=== PATIENT | female | born 1980 | race Caucasian/White ===

== ENCOUNTER 2018-05-20 02:48 | Outpatient (CLI) | payer OTHER, SELFPAY ==
[2018-05-20 11:27] LABS: ALT 25 U/L (12-78); AST 18 U/L (15-37); Albumin 3.6 g/dL (3.4-5.0); Alkaline Phosphatase 40 U/L (46-116); Anion Gap 7.8 mmol/L (3-11); BUN 13 mg/dL (7-18); Bilirubin, Total 0.8 mg/dL (0.2-1.0); CO2 28.2 mmol/L (21.0-32.0); CREATININE 0.63 mg/dL (0.55-1.02); Chloride 104 mmol/L (98-107); Glucose 85 mg/dL (70-100); Potassium 4.5 mmol/L (3.5-5.1); Sodium 140 mmol/L (136-145); Total Protein 6.7 g/dL (6.4-8.2)
== END 2018-05-20 03:08 ==
DX: Z00.00 Encounter for general adult medical examination without abnormal findings (principal); J45.990 Exercise induced bronchospasm; M65.9 Synovitis and tenosynovitis, unspecified; R17 Unspecified jaundice
CPT/HCPCS: 36415; 80053

== ENCOUNTER 2018-06-03 01:34 | Outpatient (CLI) | payer OTHER, SELFPAY ==
--- NOTE | 2018-06-03 13:28 | DI.COMBO_ITS ---
SYMPTOMS/DIAGNOSIS: LEFT BREAST MASS, N63.20 MAMMOGRAM AND LEFT BREAST ULTRASOUND: Mammogram and left breast ultrasound are interpreted in conjunction. The patient reportedly has a question of a palpable abnormality in the upper outer quadrant of the left breast. The breasts are heterogeneously dense. No dominant mass or clumped microcalcification identified in either breast. Today' s examination is a baseline examination. Left breast ultrasound was performed to evaluate the questionable area of abnormality and there is no specific abnormality identified in this area. No mass or cyst seen in this area. There is an incidental 4 mm in diameter simple cyst of the upper inner quadrant of the left breast. CONCLUSION: No specific evidence of malignancy at this time. I would suggest that routine screening examinations begin at age 40 unless there is breast symptomatology in the intervening period. Category 1, breast density category C. MQSA ASSESSMENT OF FINDINGS: Negative. Category 1. Patient will receive a letter notifying them of these results. Bi-RADS category C. The breasts are heterogeneously dense, which may obscure small masses.
== END 2018-06-03 01:54 ==
DX: N63.21 Unspecified lump in the left breast, upper outer quadrant (principal); N60.02 Solitary cyst of left breast
CPT/HCPCS: 76642; 77062; 77066; G0279

== ENCOUNTER 2020-08-05 19:14 | Outpatient (REF) | payer SELFPAY ==
[2020-08-07 15:52] LABS: COVID-19 RT-PCR UVMMC Result Negative (Negative)
== END 2020-08-05 19:34 ==
LOC: NCHCN 19:14
PROVIDERS: PCP Nurse Practitioner; Visit Provider Nurse Practitioner Family
DX: Z11.59 Encounter for screening for other viral diseases (principal)
CPT/HCPCS: U0003

== ENCOUNTER 2020-10-10 22:26 | Outpatient (REF) | payer OTHER, SELFPAY ==
[2020-10-10 15:54] LABS: HCT 39.6 % (36.0-46.0); HGB 13.2 g/dL (11.2-15.7); MCH 32.5 pg (27.0-33.0); MCHC 33.3 % (32.0-36.0); MCV 97.5 fL (80-95); MPV 9.8 fL (8.0-11.0); Platelet Count 305 10^3/uL (130-400); RBC 4.06 10^6/uL (3.93-5.22); RDW 12.9 % (11.7-14.6); RDW-SD 46.5 fL; WBC 4.86 10^3/uL (4.4-10.8)
[2020-10-10 16:21] LABS: Hemoglobin A1C 5.1 % (<5.7)
[2020-10-10 16:25] LABS: Calculated LDL 50 mg/dL (<100); Cholesterol 145 mg/dL (<200); HDL Cholesterol 84 mg/dL (40-60); Triglyceride 58 mg/dL (<150)
== END 2020-10-10 22:27 | disposition home or self-care (01) ==
LOC: LBN 22:26
PROVIDERS: PCP Nurse Practitioner; Visit Provider Nurse Practitioner
DX: N92.0 Excessive and frequent menstruation with regular cycle (principal); Z13.6 Encounter for screening for cardiovascular disorders; Z13.1 Encounter for screening for diabetes mellitus
CPT/HCPCS: 80061; 85027; 83036

== ENCOUNTER 2020-10-25 03:55 | Outpatient (CLI) | payer OTHER, SELFPAY ==
--- NOTE | 2020-10-25 06:45 | DI.US_ITS ---
EXAM: US PELVIS TRANSVAGINAL CLINICAL HISTORY: heavy menses,N92.0 TECHNIQUE: Transabdominal and transvaginal imaging was performed using standard protocol. COMPARISON: US none FINDINGS: KIDNEYS: Kidneys are symmetric in size. A few small echogenic foci are seen in the left kidney. Ther e is prominence of the left renal pelvis and dilatation of the calices. No renal mass or cyst identi fied. UTERUS: Anteverted. 8.8 x 4.4 x 5.2 cm. Endometrium: 15 millimeters, mildly heterogeneous. Myometrium: Unremarkable. Cervix: Unremarkable. OVARIES: Right: Cyst or mass: None. Left: Cyst or mass: 2.0 x 1.8 x 1.9 centimeter heterogeneous lesion which could represent a hemorrhag ic cyst. DOPPLER: Color: Symmetric and uniform flow to both ovaries. No hyperemia. Duplex: Normal ovarian arterial waveforms visualized. CUL-DE-SAC: Free fluid: None. IMPRESSION: 1. Thickened, mildly heterogeneous endometrium. 2. 2 centimeter complex lesion of the left ovary could represent a hemorrhagic cyst. Follow-up exam could be considered. 3. Left nephrolithiasis and mild to moderate left hydronephrosis. CT could be considered for further evaluation. DATA REPOSITORY:
== END 2020-10-25 04:15 ==
PROVIDERS: PCP Nurse Practitioner; Visit Provider Nurse Practitioner
DX: R93.89 Abnormal findings on diagnostic imaging of other specified body structures (principal); N92.0 Excessive and frequent menstruation with regular cycle; N83.8 Other noninflammatory disorders of ovary, fallopian tube and broad ligament; N13.2 Hydronephrosis with renal and ureteral calculous obstruction
CPT/HCPCS: 76830; 76856

== ENCOUNTER 2021-02-15 11:34 | Outpatient (REF) | payer OTHER, SELFPAY ==
[2021-02-20 15:02] LABS: Helicobacter pylori Ag, Feces Negative (Negative)
== END 2021-02-15 11:35 | disposition home or self-care (01) ==
LOC: LBN 11:34
PROVIDERS: PCP Nurse Practitioner; Visit Provider Nurse Practitioner
DX: K21.9 Gastro-esophageal reflux disease without esophagitis (principal)
CPT/HCPCS: 87338

== ENCOUNTER 2021-05-09 20:52 | Outpatient (REF) | payer OTHER, SELFPAY | END 2021-05-09 20:53 | disposition home or self-care (01) | LOC: LBN 20:52 | PROVIDERS: PCP Nurse Practitioner; Visit Provider Physician Assistant | DX: J02.9 Acute pharyngitis, unspecified (principal) | CPT/HCPCS: 87070 ==

== ENCOUNTER 2021-10-17 10:04 | Outpatient (REF) | payer OTHER, SELFPAY ==
--- NOTE | 2021-10-17 09:40 | PAPFT_PTH ---
PATIENT: Pauline Fernandez LOC: [facility] U#:[id number] AGE/SX: 41/F ROOM: RE10/17/[address]: Avani Serrato, PhD SKI INSTRUCTOR : 1980 BED: DIS: 10/17/2021 SPEC #: [id number] RECD: 10/17/21 12:48 STATUS: VENKATESH REJuan Luis #: [id number] TRENT: 10/17/21 09:[address]: Avani Serrato DEPT: [facility] Cytology RECD BY: Radha Huertas Tissues: 1 - CX/ENDOCX FOR PAP SMEARS Procedures: PAP THIN PREP/UVM Screening HPV DNA PROBE Comments: [id number]
== END 2021-10-17 10:05 | disposition home or self-care (01) ==
LOC: LBN 10:04
PROVIDERS: PCP Nurse Practitioner; Visit Provider Nurse Practitioner
DX: Z12.4 Encounter for screening for malignant neoplasm of cervix (principal); Z11.51 Encounter for screening for human papillomavirus (HPV)
CPT/HCPCS: 88142; 87624

== ENCOUNTER 2022-10-27 02:27 | Outpatient (CLI) | payer BC, SELFPAY ==
[2022-10-27 12:34] LABS: HCT 40.9 % (36.0-46.0); HGB 13.4 g/dL (11.2-15.7); MCH 32.4 pg (27.0-33.0); MCHC 32.8 % (32.0-36.0); MCV 99 fL (80-95); MPV 9.9 fL (8.0-11.0); Platelet Count 246 10^3/uL (130-400); RBC 4.13 10^6/uL (3.93-5.22); RDW 13.2 % (11.7-14.6); RDW-SD 48.6 fL; WBC 4.44 10^3/uL (4.4-10.8)
[2022-10-27 12:58] LABS: ALT 21 U/L (14-59); AST 24 U/L (15-37); Albumin 3.8 g/dL (3.4-5.0); Alkaline Phosphatase 37 U/L (46-116); Anion Gap 6.3 mmol/L (3-11); BUN 11 mg/dL (7-18); Bilirubin, Total 1.2 mg/dL (0.2-1.0); CO2 27.7 mmol/L (21.0-32.0); CREATININE 0.7 mg/dL (0.55-1.02); Calcium 8.4 mg/dL (8.5-10.1); Chloride 104 mmol/L (98-107); Estimated GFR 112.05 (mL/min/1.73m2); Glucose 86 mg/dL (74-106); Potassium 4.5 mmol/L (3.5-5.1); Sodium 138 mmol/L (136-145); Total Protein 7.1 g/dL (6.4-8.2); Uric Acid 4.2 mg/dL (2.6-6.0)
[2022-10-27 13:18] LABS: Calculated LDL 79 mg/dL (<100); Cholesterol 174 mg/dL (<200); HDL Cholesterol 86 mg/dL (40-60); Triglyceride 46 mg/dL (<150)
== END 2022-10-27 02:28 | disposition home or self-care (01) ==
LOC: LOS 02:27
PROVIDERS: PCP Nurse Practitioner Family; Visit Provider Nurse Practitioner Family
DX: Z00.00 Encounter for general adult medical examination without abnormal findings (principal); F32.89 Other specified depressive episodes; F41.8 Other specified anxiety disorders; M79.675 Pain in left toe(s); Z13.220 Encounter for screening for lipoid disorders
CPT/HCPCS: 36415; 80053; 80061; 85027; 84550

== ENCOUNTER 2022-11-24 01:16 | Outpatient (CLI) | payer BC, SELFPAY ==
--- NOTE | 2022-11-24 07:00 | DI.MAMMO_ITS ---
Exam(s) MAMMO SCREENING EXAM: MAMMO SCREENING CLINICAL HISTORY: screening,z12.39. TECHNIQUE: Bilateral full field digital CC and MLO mammographic images were obtained with 3D tomosyn thesis and utilizing computer aided detection (CAD). COMPARISON: Prior baseline mammogram 2018. Breast ultrasound at that time also reviewed. FINDINGS: No new significant right breast findings. Posteromedially in the left breast there is an asymmetric density again noted which has slightly incr eased in size and there is also a 2nd smaller density at this level, both evident on the CC view and located posteromedially, approximately 10-11 cm in from the nipple. There are no malignant-appearing microcalcification groups in this region or elsewhere in either fay st. There is no significant architectural distortion nor skin thickening-retraction. IMPRESSION: No radiographic evidence of malignancy in the right breast. Asymmetric density possible nodules posteromedially in the left breast. Spot compression view and ul trasound recommended. BI-RADS Category 0 - Assessment Incomplete: Need additional imaging evaluation Breast Density - Category B - Scattered areas of fibroglandular density Breast density Category C or D implies that the patient has dense breast tissue. Dense breast tissue can make it harder to find cancer on a mammogram. Dense breast tissue is also associated with an incr eased risk of breast cancer. This information about the result of the mammogram report was provided to the patient to raise their awareness. Use this report when you speak with the patient about their risks for breast cancer, which includes their family history. At that time, you may recommend additional screening tests (Ultrasoun d or MRI) as these tests may add significant information. A negative radiographic report should not delay biopsy if a dominant or clinically suspicious mass is present. Up to ten percent of cancers are not identified on mammography. A negative report may reinforce clinical impression. Adenosis and dense breasts may obscure an underlying neoplasm. False positive reports average 6 to 10%. Patient will receive a letter notifying them of these results.
== END 2022-11-24 01:36 ==
LOC: DI 01:17
PROVIDERS: PCP Nurse Practitioner Family; Visit Provider Nurse Practitioner Family
DX: Z12.31 Encounter for screening mammogram for malignant neoplasm of breast (principal); R92.8 Other abnormal and inconclusive findings on diagnostic imaging of breast
CPT/HCPCS: 77063; 77067

== ENCOUNTER 2022-12-08 01:05 | Outpatient (CLI) | payer BC, SELFPAY ==
--- NOTE | 2022-12-08 | DI.US_ITS ---
Exam(s) MG MAMMO SCREEN CALL BACK UNI US BREAST LT LIMITED EXAM: MG MAMMO SCREEN CALL BACK UNI and U/S breast LT limited CLINICAL HISTORY: F/U ABNL MAMMO, ASYMMETRIC DENSITY POSSIBLE NODULE LT BREAST. TECHNIQUE: Craniocaudal and mediolateral oblique Full Field Digital Mammography views of the left br east with Computer Aided Diagnosis followed by Tomosynthesis and left breast ultrasound. COMPARISON: Comparison is made with prior examinations. FINDINGS: Mammography/Tomosynthesis: Masses/Architectural Distortion: The area of concern persist in the medial left breast. No sap bpc architect ural distortion or so seated calcifications are seen. No definite discrete mass. This may represent normal fibroglandular tissue. Microcalcifictions: No suspicious pleomorphic-type are seen. Skin Thickening/Nipple Retraction: None. Limited left breast US: Echotexture: Normal appearance of the glandular tissue. Shadowing: No suspicious foci. Cyst: None. Solid lesions: None seen. Ductal dilation: None. IMPRESSION: 1. No definite evidence of malignancy is noted. 2. A six-month follow-up left mammogram is requested for re-evaluation. 3. The findings were discussed with the patient on the date of the examination. BI-RADS Category 3 - 6 month - Probably Benign Finding: Recommend follow-up imaging in 6 months Breast Density - Category B - Scattered areas of fibroglandular density Breast density Category C or D implies that the patient has dense breast tissue. Dense breast tissue can make it harder to find cancer on a mammogram. Dense breast tissue is also associated with an incr eased risk of breast cancer. This information about the result of the mammogram report was provided to the patient to raise their awareness. Use this report when you speak with the patient about their risks for breast cancer, which includes their family history. At that time, you may recommend additional screening tests (Ultrasoun d or MRI) as these tests may add significant information. A negative radiographic report should not delay biopsy if a dominant or clinically suspicious mass is present. Up to ten percent of cancers are not identified on mammography. A negative report may reinforce clinical impression. Adenosis and dense breasts may obscure an underlying neoplasm. False positive reports average 6 to 10%. Patient will receive a letter notifying them of these results.
== END 2022-12-08 01:25 ==
LOC: DI 01:08
PROVIDERS: PCP Nurse Practitioner Family; Visit Provider Nurse Practitioner Family
DX: R92.8 Other abnormal and inconclusive findings on diagnostic imaging of breast (principal)
CPT/HCPCS: 76642; 77063; 77067

== ENCOUNTER → 2023-06-15 01:14 | Outpatient (CLI) | payer BC, SELFPAY ==
--- NOTE | 2023-06-15 08:30 | DI.MAMMO_ITS ---
Exam(s) MAMMO DIAGNOSTIC UNI EXAM: MAMMO DIAGNOSTIC UNI CLINICAL HISTORY: 6 month follow up, R92.8, ABNL LT BREAST. TECHNIQUE: Craniocaudal and mediolateral oblique Full Field Digital Mammography views of the left br east with Computer Aided Diagnosis followed by Tomosynthesis. COMPARISON: Comparison is made with prior examinations. FINDINGS: Mammography/Tomosynthesis: Masses/Architectural Distortion: The asymmetric breast tissue in the medial left breast is unchanged. No suspicious masses or areas of architectural distortion are seen. Microcalcifictions: No suspicious pleomorphic-type are seen. Skin Thickening/Nipple Retraction: None. IMPRESSION: 1. No evidence of malignancy is noted. 2. A six-month follow-up left mammogram is requested for re-evaluation. 3. The findings were discussed with the patient on the date of the examination. BI-RADS Category 3 - 6 month - Probably Benign Finding: Recommend follow-up imaging in 6 months Breast Density - Category B - Scattered areas of fibroglandular density Breast density Category C or D implies that the patient has dense breast tissue. Dense breast tissue can make it harder to find cancer on a mammogram. Dense breast tissue is also associated with an incr eased risk of breast cancer. This information about the result of the mammogram report was provided to the patient to raise their awareness. Use this report when you speak with the patient about their risks for breast cancer, which includes their family history. At that time, you may recommend additional screening tests (Ultrasoun d or MRI) as these tests may add significant information. A negative radiographic report should not delay biopsy if a dominant or clinically suspicious mass is present. Up to ten percent of cancers are not identified on mammography. A negative report may reinforce clinical impression. Adenosis and dense breasts may obscure an underlying neoplasm. False positive reports average 6 to 10%. Patient will receive a letter notifying them of these results.
== END ==
PROVIDERS: PCP Nurse Practitioner Family; Visit Provider Nurse Practitioner Family
DX: R92.8 Other abnormal and inconclusive findings on diagnostic imaging of breast (principal); Z09 Encounter for follow-up examination after completed treatment for conditions other than malignant neoplasm
CPT/HCPCS: 77061; 77065; G0279

== ENCOUNTER → 2024-02-10 | Outpatient (CLI) | payer BC, SELFPAY ==
--- NOTE | 2024-02-10 07:30 | DI.MAMMO_ITS ---
Exam(s) MAMMO DIAGNOSTIC BI EXAM: MAMMO DIAGNOSTIC BI CLINICAL HISTORY: 6 month follow up,R92.8,Z09, LT ASYMMETRIC BREAST TISSUE. TECHNIQUE: Craniocaudal and mediolateral oblique Full Field Digital Mammography views of the bilater al breast with Computer Aided Diagnosis followed by Tomosynthesis. COMPARISON: Comparison is made with prior examinations. FINDINGS: Mammography/Tomosynthesis: Masses/Architectural Distortion: None seen. Microcalcifictions: No suspicious pleomorphic-type are seen. Skin Thickening/Nipple Retraction: None. IMPRESSION: 1. No evidence of malignancy is noted. 2. Unless there is more urgent need, follow-up screening mammography is recommended, as per [place] [employer] guidelines. 3. The findings were discussed with the patient on the date of the examination. BI-RADS Category 1 - Negative Breast Density - Category B - Scattered areas of fibroglandular density Breast density Category C or D implies that the patient has dense breast tissue. Dense breast tissue can make it harder to find cancer on a mammogram. Dense breast tissue is also associated with an incr eased risk of breast cancer. This information about the result of the mammogram report was provided to the patient to raise their awareness. Use this report when you speak with the patient about their risks for breast cancer, which includes their family history. At that time, you may recommend additional screening tests (Ultrasoun d or MRI) as these tests may add significant information. A negative radiographic report should not delay biopsy if a dominant or clinically suspicious mass is present. Up to ten percent of cancers are not identified on mammography. A negative report may reinforce clinical impression. Adenosis and dense breasts may obscure an underlying neoplasm. False positive reports average 6 to 10%. Patient will receive a letter notifying them of these results.
== END ==
PROVIDERS: PCP Nurse Practitioner Family; Visit Provider Nurse Practitioner Family
DX: Z09 Encounter for follow-up examination after completed treatment for conditions other than malignant neoplasm (principal); R92.8 Other abnormal and inconclusive findings on diagnostic imaging of breast
CPT/HCPCS: 77062; 77066; G0279

== ENCOUNTER 2024-12-26 03:50 | Outpatient (CLI) | payer OTHER, SELFPAY ==
[2024-12-26 13:01] LABS: ALT 21 U/L (14-59); AST 19 U/L (15-37); Albumin 3.7 g/dL (3.4-5.0); Alkaline Phosphatase 43 U/L (46-116); BUN 10 mg/dL (7-18); Bilirubin, Total 0.7 mg/dL (0.2-1.0); CREATININE 0.8 mg/dL (0.55-1.02); Calcium 9.1 mg/dL (8.5-10.1); Chloride 106 mmol/L (98-107); Estimated GFR 94.28 (mL/min/1.73m2); Glucose 98 mg/dL (74-106); Potassium 4.4 mmol/L (3.5-5.1); Sodium 142 mmol/L (136-145); TSH (W/Ref FT4) 3.44 uIU/mL (0.36-3.74); Total Protein 7.2 g/dL (6.4-8.2)
[2024-12-26 21:12] LABS: Calculated LDL 72 mg/dL (<100); Cholesterol 165 mg/dL (<200); HDL Cholesterol 80 mg/dL (>or=50); Triglyceride 67 mg/dL (<150)
== END 2024-12-26 03:51 | disposition home or self-care (01) ==
LOC: LOS 03:50
PROVIDERS: PCP Nurse Practitioner Family; Visit Provider Nurse Practitioner Family
DX: Z00.00 Encounter for general adult medical examination without abnormal findings (principal); F41.9 Anxiety disorder, unspecified; F34.1 Dysthymic disorder; K58.9 Irritable bowel syndrome, unspecified; R00.2 Palpitations
CPT/HCPCS: 36415; 80053; 80061; 84443

== ENCOUNTER 2024-12-26 08:26 | Outpatient (CLI) | payer OTHER, SELFPAY | END 2024-12-26 08:27 | disposition home or self-care (01) | PROVIDERS: PCP Nurse Practitioner Family; Visit Provider Nurse Practitioner Family | DX: Z82.49 Family history of ischemic heart disease and other diseases of the circulatory system (principal); R00.2 Palpitations | CPT/HCPCS: 93246 ==

== ENCOUNTER 2025-01-18 02:24 | Outpatient (CLI) | payer OTHER, SELFPAY ==
--- NOTE | 2025-01-18 06:30 | DI.US_ITS ---
APPROVED REPORT EXAM: Comprehensive 2D, Doppler, and color-flow Echocardiogram Patient Location: Out-Patient Fire Sprinkler Fitter: Janet Munroe RDCS (AE) Indications: Palpitations, Family h/o cardiomyopathy Other Information Study Quality: Adequate Conclusion Normal left ventricular wall thickness and chamber size. Ejection fraction is 58%. Wall motion is n ormal Normal right ventricular size and function Both atria are normal in size There is no structural or hemodynamically significant valvular disease Wall motion Left Ventricle The left ventricle is normal size. The left ventricular systolic function is normal. The left ventric ular ejection fraction is within the normal range. There is normal left ventricular wall thickness. T here is normal LV segmental wall motion. There is no ventricular septal defect visualized. LVEF is 58 %. Right Ventricle The right ventricle is normal size. The right ventricular systolic function is normal. Atria The left atrium size is normal. The right atrium size is normal. The interatrial septum is intact wit h no evidence for an atrial septal defect. Aortic Valve The aortic valve is normal in structure. Aortic valve is trileaflet. There is no aortic valvular sten osis. No aortic regurgitation is present. Mitral Valve The mitral valve is normal in structure. No evidence of mitral valve stenosis. Trace mitral regurgita tion. Tricuspid Valve The tricuspid valve is normal in structure. There is no tricuspid valve stenosis. Trace tricuspid reg urgitation. Unable to assess PA pressure. Pulmonic Valve The pulmonary valve is normal in structure. There is no pulmonic valvular stenosis. There is no pulmo car[place]ota valvular regurgitation. Great Vessels The aortic root is normal in size. The ascending aorta is normal in size. Aortic arch is normal in ca liber. IVC is normal in size and collapses >50% with inspiration. Pericardium There is no pericardial effusion. 2D Dimensions IVSD d PLAX 0.85 cm F: 0.6-1.0 Ao Root d 2.86 cm F: 2.7 - 3.3 LVPW d PLAX 0.87 cm F: 0.6 - 1.0 Ao Asc Diam d 2.90 cm F: 2.3 - 3.1 LVID d PLAX 4.19 cm F: 3.8 - 5.2 LVDs 2.91 cm F: 2.2 - 3.5 LV EF Teichholz 58.4 % FS 30.50 % LV EDV (Teich) 78.1 mL LV ESV (Teich) 32.5 mL M-Mode TAPSE 1.89 cm (M/F) >1.7 Auto EF LV EDV A4C 95.9 mL LV EDV A2C 115.9 mL LV EDV BP 105.7 mL LV ESV A4C 40.2 mL LV ESV A2C 49.7 mL LV ESV BP 44.8 mL LVEF(%) A4C 58.1 % LVEF(%) A2C 57.2 % LVEF(%) BP 57.6 % LV SV A4C 55.7 ml LV SV A2C 66.2 ml LV SV BP 60.9 ml LV CO A4C 3.0 L/min LV CO A2C 3.7 L/min LV CO BP 3.4 L/min HR A4C 53.98 BPM HR A2C 56.08 BPM LV EDV Index (BP) LA Volume LA Length A4C 3.7 cm LA Length A2C 3.5 cm LA Area A4C s 10.27 cm2 LA Area A2C s 9.44 cm2 LA Vol A4C A-L 23.88 mL LA Vol A2C A-L 21.38 mL LA Vol Biplane A-L 23.2 mL LA Vol/BSA A4C A-L LA Vol/BSA A2C A-L LA Vol/BSA BP A-L 13.9 mL/m2 LA Vol A4C MOD 21.7 mL LA Vol A2C MOD 20.1 mL LA Vol BP MOD 21.4 mL RA Volume RA Area A4C 8.3 cm2 RA ESV A4C (A-L) 16.4mL RA Vol/BSA A4C A-L RA Length A4C 3.6 cm RA ESV A4C (MOD) 15.4mL LV Diastology MV E' medial 0.103 (>0.07 m/s) MV E Vmax 0.75 (0.4-1.3 m/s) MV E/E' MED 7.26 (<14) MV A Vmax 0.55 (0.4-1.3 m/s) MV E' lateral 0.174 (>0.1 m/s) E/A Ratio 1.4 MV E/E' LAT 4.28 (<14) MV E' Average 0.139 m/s MV E/E'(average) 5.39 Aortic Valve AoV Vmax 1.11 m/s LVOT Vmax 0.87 m/s AoV Peak Grad 4.9 mmHg LVOT Peak Grad 3.0 mmHg AoV Area (Vmax) 2.16 cm2 LVOT VTI 0.191 m AoV VTI 0.266 m LVOT Mean Grad 1.8 mmHg AoV Mean Rohit. 0.83 m/s LVOT SV 52.33 mL AoV Mean Grad 3.1 mmHg LVOT Diam s 1.85 cm AoV Area (VTI) 1.97 cm2 AV Regurg Peak Gr. 4.92 mmHg Velocity Ratio 0.78 Mitral Valve MV DT 263 (160-240 msec) MV Vmax TIPS 0.70 m/s MV Mean Grad 0.7 (<2mmHg) MV VTI 0.275 m Pulmonary Valve PV Vmax 0.82 (0.5-1.5 m/s) RVOT Vmax 0.74 m/s PV Peak Grad 2.7 mmHg RVOT Peak Gr. 2.2 mmHg PV Mean Rohit 0.55 m/s RVOT VTI 0.176 m PV Mean Grad 1.4 mmHg RVOT Mean Gr. 1.1 mmHg Tricuspid Valve RA Pressure 3.00 mmHg TV S' 0.12 m/s
== END 2025-01-18 02:44 ==
LOC: DI 02:24
PROVIDERS: PCP Nurse Practitioner Family; Visit Provider Internal Medicine Cardiovascular Disease
DX: Z82.49 Family history of ischemic heart disease and other diseases of the circulatory system (principal); R00.2 Palpitations
CPT/HCPCS: 93306

== ENCOUNTER 2025-01-18 07:46 | Outpatient (CLI) | payer OTHER, SELFPAY ==
--- NOTE | 2025-01-18 08:23 | W.CARDEVENT ---
Date of service: 01/18/25 Time of Service: 08:23 Cardiac Event Recorder Referring Provider:: Yudi Spangler Indications:: Palpitations Cardiac Event Note: This is a cardiac event monitor. Patient was monitored for 12 days and 19 hours Rhythm throughout was sinus with an average heart rate of 71. Minimum was 41, maximum 188 There were very rare isolated atrial and ventricular ectopic beats. There were 2 brief self-limited atrial runs. The longest of these was 7 beats in duration. There was no atrial fibrillation, no high-grade AV block, no pauses greater than 3 seconds Reported symptoms correlated to sinus rhythm
== END 2025-01-18 07:47 | disposition home or self-care (01) ==
LOC: CARDOPNVT 07:46
PROVIDERS: PCP Nurse Practitioner Family; Visit Provider Internal Medicine Cardiovascular Disease
DX: R00.2 Palpitations (principal); I49.1 Atrial premature depolarization
CPT/HCPCS: 93248

== ENCOUNTER 2025-02-14 02:12 | Outpatient (CLI) | payer OTHER, SELFPAY ==
--- NOTE | 2025-02-14 07:30 | DI.MAMMO_ITS ---
Exam(s) MAMMO SCREENING EXAM: MAMMO SCREENING CLINICAL HISTORY: screening,z12.39 TECHNIQUE: Mammograms were interpreted according to the usual protocol including computer analysis with CAD system, tomosynthesis and C-view imaging. COMPARISON: 2017 through 2023 FINDINGS: The breasts are composed of scattered fibroglandular densities, Breast Density category B. No suspicious masses or suspicious microcalcifications are seen. No skin thickening or abnormal axillary lymph nodes are seen. There has been no significant change from prior exams. IMPRESSION: BI-RADS Category 1, Negative mammogram Yearly screening mammography is recommended. Breast Density - Category B - There are scattered areas of fibroglandular density. Breast density Category C or D implies that the patient has dense breast tissue. Dense breast tissue can make it harder to find cancer on a mammogram. Dense breast tissue is also associated with an increased risk of breast cancer. This information about the result of the mammogram report was provided to the patient to raise their awareness. Use this report when you speak with the patient about their risks for breast cancer, which includes their family history. At that time, you may recommend additional screening tests (Ultrasound or MRI) as these tests may add significant information. A negative radiographic report should not delay biopsy if a dominant or clinically suspicious mass is present. Up to ten percent of cancers are not identified on mammography. A negative report may reinforce clinical impression. Adenosis and dense breasts may obscure an underlying neoplasm. False positive reports average 6 to 10%. Patient will receive a letter notifying them of these results.
== END 2025-02-14 02:32 ==
LOC: DI 02:12
PROVIDERS: PCP Nurse Practitioner Family; Visit Provider Nurse Practitioner Family
DX: Z12.31 Encounter for screening mammogram for malignant neoplasm of breast (principal); R92.323 Mammographic fibroglandular density, bilateral breasts
CPT/HCPCS: 77063; 77067

== ENCOUNTER 2025-07-24 11:50 | Outpatient (CLI) | payer OTHER, SELFPAY ==
--- NOTE | 2025-07-24 11:45 | RT.EKG_ITS ---
APPROVED REPORT Exam: Resting ECG Reason for Exam: sensation of chest pressure Patient Location: O HR:58 bpm ECG Measurements Heart Rate 58 AXIS ID 151 P 68 QRSd 84 QRS 28 QT 445 T 34 QTc 438 Conclusion Sinus rhythm...normal P axis, V-rate 50- 99 Probable left atrial enlargement...P >50mS, <-0.10mV V1 Otherwise normal ECG
== END 2025-07-24 11:51 | disposition home or self-care (01) ==
LOC: DI.CM 11:51
PROVIDERS: PCP Nurse Practitioner Family; Visit Provider Nurse Practitioner Family
DX: R07.89 Other chest pain (principal); I51.7 Cardiomegaly
CPT/HCPCS: 93010

== ENCOUNTER → 2025-08-06 00:09 | Outpatient (CLI) | payer OTHER, SELFPAY ==
--- NOTE | 2025-08-06 05:15 | ETT_ITS ---
APPROVED REPORT Exam: Exercise Treadmill Patient Location: Out-Patient Room/Bed: Stress Nurse: Ngoc Apodaca RN Ordering Provider:SHERRY KEEN, Contact Number: [phone] BMI: 26.51 Baseline Rhythm: Sinus Bradycardia Indications: chest pressure, other chest pain Medical History Medical History: anxiety, depression, IBS Cardiac Medications: ashwagandha root extract, lexapro Allergies: hydrocodone, oxycodone Cardiac Risk Factors: family hx Previous Cardiac Procedures: n/a Pretest Chest Pain Characteristics: No chest pain Exercise History: Physically active Physical Disabilities: n/a Lung Sounds: Clear to auscultation Heart Sounds: Regular Stress Test Details Test: Exercise stress testing was performed using a Collin protocol. Rest Stress HR Resting HR Supine: 56 bpm Max Heart Rate (APMHR): 177 bpm Resting HR Standin bpm Target HR (85% APMHR): 150 bpm Max HR Achieved: 156 bpm % of APMHR: 88 Recovery HR: 74 bpm HR response to stress: Normal HR response to stress BP Resting BP Supine: 110/60 mmHg Resting BP Standin/60 mmHg Max BP: 140/70 mmHg Recovery BP: 110/60 mmHg BP response to stress: Normal blood pressure response to stress. ECG Resting ECG: Sinus Rhythm Ectopy: rare PACs Stress ECG: Sinus Tachycardia ST Change: No significant ST segment changes noted Arrhythmia: None Recovery ECG: Sinus Rhythm Recovery ST Change: No significant ST segment changes noted Recovery Arrhythmia: occasional PACs, nonconducted PACs Clinical Reason for Termination: Target HR Achieved, Fatigue Stress Symptoms: General Fatigue Exercise duration: 09 min48 sec Highest Stage Reached: Stage 3: 3.4 mph at 14% grade. Exercise capacity: 11.47 METs Angina Score: None Awad Treadmill Score: 6.5 Rate Pressure Product: [id number] Stress ECG Conclusion 1. Resting electrocardiogram was normal 2. Patient exercised on the Collin protocol completed workload of 11 METS 3. Normal heart rate and blood pressure response to exercise. The patient achieved 88% of maximal predicted heart rate for age 4. There was no electrocardiographic evidence of myocardial ischemia 5. There were no significant dysrhythmias Awad Treadmill Score is 6.5 which is Low risk. Stress Test Summary STAGE Time (mins) Speed (mph) Grade (%) HR BP SpO2 SYMPTOMS METS Supine 56 110/60 Standing 60 100/60 1 3 1.7 10 87 110/56 99 4.5 2 6 2.5 12 117 7 3 9 3.4 14 145 120/70 10 4 12 4.2 16 156 13 1 min recovery 133 140/70 100 3 min recovery 83 130/70 6 min recovery 74 110/60 Test stopped after target HR achieved due to pt request/general fatigue. Pt left ambulatory in no acute distress.
== END ==
LOC: DI 00:09
PROVIDERS: PCP Nurse Practitioner Family; Visit Provider Nurse Practitioner Family
DX: R07.89 Other chest pain (principal)
CPT/HCPCS: 93017